=== PATIENT | male | born 1995 | race Hispanic/Latino ===

== ENCOUNTER 2021-07-21 20:21 | Emergency (ER) | payer OTHER ==
[~2021-07-21] VITALS: Ht 157.5 cm; Wt 77.1 kg
[2021-07-21 21:25] VITALS: BP 122/68
[2021-07-22] MEDS ORDERED: METH4TAB3 PO (06:38)
== END 2021-07-21 21:26 | disposition home or self-care (01) ==
LOC: EDH 20:21
DX: R10.9 Unspecified abdominal pain (principal); R07.89 Other chest pain

== ENCOUNTER 2021-07-22 05:15 | Emergency (ER) | payer OTHER ==
[~2021-07-22] VITALS: Ht 157.5 cm; Wt 77.1 kg
[2021-07-22 05:51] VITALS: BP 110/61
[2021-07-22 06:01] LABS: BASOPHILS % (AUTO) 0.6 % (0.0-5.0); EOSINOPHILS % (AUTO) 0.8 % (0.0-8.0); HEMATOCRIT 39.8 % (42-54); LYMPHOCYTES % (AUTO) 22.4 % (21.0-51.0); MEAN CORPUSCULAR HEMOGLOBIN 29.6 pg (27.0-33.0); MEAN CORPUSCULAR HGB CONC 34.2 g/dL (32.0-36.0); MEAN CORPUSCULAR VOLUME 86.7 fL (79-99); MONOCYTES % (AUTO) 6.8 % (3.0-13.0); PLATELET COUNT (AUTO) 336 K/uL (130-400); RED BLOOD CELL COUNT(AUTO) 4.59 MIL/uL (4.50-6.20); RED CELL DISTRIBUTION WIDTH 12.7 % (11.0-15.5); WHITE BLOOD COUNT (AUTO) 8.5 K/uL (4.8-10.8)
[2021-07-22 06:29] LABS: ALBUMIN 4.2 g/dL (3.5-5.0); CREATININE 0.9 mg/dL (0.5-1.5); TOTAL PROTEIN, SERUM 7.3 g/dL (6.0-8.3)
[2021-07-22] MEDS ORDERED: METH4TAB3 PO (06:38)
== END 2021-07-22 06:50 | disposition home or self-care (01) ==
LOC: EDH 05:15
DX: M94.0 Chondrocostal junction syndrome [Tietze] (principal); Z86.79 Personal history of other diseases of the circulatory system
CPT/HCPCS: 36415; 80053; 84484; 85025; 93005